=== PATIENT | male | born 1945 | race Caucasian/White ===

== ENCOUNTER 2023-11-15 15:11 | Inpatient (IN) | payer MEDICARE, OTHER ==
[~2023-11-15] VITALS: Ht 167.6 cm; Wt 54.9 kg
[2023-11-15 15:16] VITALS: BP 95/64
[2023-11-15 15:35] LABS: HEMATOCRIT 28.7 % (42.0-52.0); MEAN CELL VOLUME 112.5 fl (80.0-94.0); MEAN CORPUSCULAR HGB 36.1 pg (27.0-31.0); MEAN CORPUSCULAR HGB CONC 32.1 g/dl (33.0-37.0); PLATELET COUNT AUTOMATED 318 10*3/uL (130-400); RED BLOOD COUNT 2.55 10*6/uL (4.50-5.90); RED CELL DISTRI WIDTH 15.6 % (0-14.5); WHITE BLOOD COUNT 11.6 10*3/uL (4.8-10.8)
[2023-11-15 15:41] LABS: MANUAL DIFF REFLEX YES
[2023-11-15 16:00] LABS: BUN 19 mg/dl (9-23); CHLORIDE 99 mmol/L (98-107); POTASSIUM 2.8 mmol/L (3.4-5.1)
[2023-11-15 16:12] LABS: PLATELET SUFFICIENCY NORMAL (NORMAL); POLYCHROMASIA SLIGHT; TOTAL CELLS COUNTED 100 #CELLS
[2023-11-15] MEDS ORDERED: MAGNESIUM SULFATE 100 ML IV ONE (16:25)
[2023-11-15] MEDS ORDERED: POTASSIUM CHLORIDE IN WATER 100 ML IV SCH (17:00)
[2023-11-15] MEDS ORDERED: BISACODYL 10 MG SUPP R PRN (17:40)
[2023-11-15] MEDS ORDERED: BISACODYL 5 MG TAB PO PRN (17:40)
[2023-11-15] MEDS ORDERED: Magnesium Hydroxide 30 ML UDC PO PRN (17:40)
[2023-11-15] MEDS ORDERED: ACETAMINOPHEN 325 MG TAB PO PRN (17:40)
[2023-11-15] MEDS ORDERED: ACETAMINOPHEN 650 MG SUPP R PRN (17:40)
[2023-11-15 19:05] VITALS: BP 152/81
[2023-11-15] MEDS ORDERED: SODIUM CHLORIDE 0.9% 1,000 ML IV ONE (19:15)
[2023-11-15] MEDS ORDERED: POTASSIUM CHLORIDE 20 MEQ TAB PO ONE (19:25)
[2023-11-15 21:41] LABS: ALKALINE PHOSPHATASE 206 U/L (46-116); BUN 16 mg/dl (9-23); CHLORIDE 100 mmol/L (98-107); POTASSIUM 3.2 mmol/L (3.4-5.1); SGPT/ALT 29 U/L (5-49); TOTAL PROTEIN 5.7 gm/dL (6.0-8.0)
[2023-11-15 23:00] VITALS: BP 148/77
[2023-11-16] MEDS ORDERED: [UNRECOGNIZED DRUG - OTHER] SQ (02:31)
[2023-11-16] MEDS ORDERED: LASIX20 MG PO (02:32)
[2023-11-16] MEDS ORDERED: NATURE'S BLEND F1 MG PO (02:32)
[2023-11-16] MEDS ORDERED: PEPCID20 MG PO (02:32)
[2023-11-16] MEDS ORDERED: Ondansetron4 MG PO (02:33)
[2023-11-16] MEDS ORDERED: MIRALAX17 GM PO (02:36)
[2023-11-16] MEDS ORDERED: TYLENOL325 M1 PO (02:38)
[2023-11-16] MEDS ORDERED: Ipratropium Brom3 ML INH (02:39)
[2023-11-16] MEDS ORDERED: Pantoprazole Sodium 40 MG TAB PO SCH (06:00)
[2023-11-16 06:40] LABS: HEMATOCRIT 26.6 % (42.0-52.0); MEAN CELL VOLUME 110.8 fl (80.0-94.0); MEAN CORPUSCULAR HGB 35.4 pg (27.0-31.0); MEAN PLATELET VOLUME 9.8 fl (9.6-12.3); PLATELET COUNT AUTOMATED 280 10*3/uL (130-400); RED CELL DISTRI WIDTH 15.4 % (0-14.5); WHITE BLOOD COUNT 10.5 10*3/uL (4.8-10.8)
[2023-11-16 06:42] LABS: MANUAL DIFF REFLEX YES
[2023-11-16 07:12] LABS: ALKALINE PHOSPHATASE 196 U/L (46-116); BUN 18 mg/dl (9-23); CHLORIDE 103 mmol/L (98-107); CHOLESTEROL 150 mg/dL (<200); LDL CHOLESTEROL 72 mg/dL (9-159); POTASSIUM 3.3 mmol/L (3.4-5.1); SGPT/ALT 26 U/L (5-49); TOTAL PROTEIN 5.6 gm/dL (6.0-8.0); TRIGLYCERIDES 119 mg/dl (<150)
[2023-11-16 07:28] LABS: PLATELET SUFFICIENCY NORMAL (NORMAL); POLYCHROMASIA SLIGHT; TOTAL CELLS COUNTED 100 #CELLS
[2023-11-16 07:29] LABS: OVALOCYTES FEW; ROULEAUX SLIGHT; SCHISTOCYTES FEW; TOXIC GRANULATION SLIGHT; VACUOLATION OF NEUTROPHILS SLIGHT
[2023-11-16 07:45] VITALS: BP 128/70
[2023-11-16] MEDS ORDERED: POTASSIUM CHLORIDE 20 MEQ TAB PO ONE ×2 (09:20→18:55)
[2023-11-16] MEDS ORDERED: MAGNESIUM SULFATE 100 ML IV ONE ×2 (09:20→10:00)
[2023-11-16] MEDS ORDERED: Enoxaparin Sodium 40 MG/0.4 ML SYR SC SCH (10:00)
[2023-11-16] MEDS ORDERED: MAGNESIUM500 MG PO (13:08)
[2023-11-16] MEDS ORDERED: K-TAB20 MEQ PO (13:08)
[2023-11-16] MEDS ORDERED: DOXYCYCLINE HY100 M3 PO (13:09)
== END 2023-11-16 13:32 | disposition home or self-care (01) | DRG 640 ==
LOC: ED 15:11 → EDHOLD 16:55
PROVIDERS: Internal Medicine; Student in an Organized Health Care Education/Training Program; ADMIT Internal Medicine; ATTEND Internal Medicine
DX: E87.6 Hypokalemia (principal); E43 Unspecified severe protein-calorie malnutrition; J15.9 Unspecified bacterial pneumonia; J44.0 Chronic obstructive pulmonary disease with (acute) lower respiratory infection; Z68.43 Body mass index [BMI] 50.0-59.9, adult; E87.1 Hypo-osmolality and hyponatremia; E83.42 Hypomagnesemia; Z66 Do not resuscitate; D53.9 Nutritional anemia, unspecified; I48.91 Unspecified atrial fibrillation; K57.30 Diverticulosis of large intestine without perforation or abscess without bleeding; K74.60 Unspecified cirrhosis of liver; K21.9 Gastro-esophageal reflux disease without esophagitis; I44.1 Atrioventricular block, second degree; D72.829 Elevated white blood cell count, unspecified; Z87.891 Personal history of nicotine dependence; Z83.3 Family history of diabetes mellitus; Z79.899 Other long term (current) drug therapy